=== PATIENT | female | born 1980 | race Caucasian/White ===

== ENCOUNTER 2017-10-01 | Observation (INO) | payer OTHER | END 2017-10-02 11:33 | disposition home or self-care (01) | PROVIDERS: ADMIT Obstetrics & Gynecology | PROC: 0DBP8ZX Excision of Rectum, Via Natural or Artificial Opening Endoscopic, Diagnostic (ICD-10-PCS; principal; 2017-10-01) | PROC: 8E0W8CZ Robotic Assisted Procedure of Trunk Region, Via Natural or Artificial Opening Endoscopic (ICD-10-PCS; principal; 2017-10-01) | PROC: 0UT7FZZ Resection of Bilateral Fallopian Tubes, Via Natural or Artificial Opening With Percutaneous Endoscopic Assistance (ICD-10-PCS; principal; 2017-10-01) | PROC: 0UBC8ZZ Excision of Cervix, Via Natural or Artificial Opening Endoscopic (ICD-10-PCS; principal; 2017-10-01) | PROC: 0UT90ZZ Resection of Uterus, Open Approach (ICD-10-PCS; principal; 2017-10-01) | PROC: 0UTC0ZZ Resection of Cervix, Open Approach (ICD-10-PCS; principal; 2017-10-01) | PROC: 0UT2FZZ Resection of Bilateral Ovaries, Via Natural or Artificial Opening With Percutaneous Endoscopic Assistance (ICD-10-PCS; principal; 2017-10-01) | DX: N81.4 Uterovaginal prolapse, unspecified (principal); N80.1 Endometriosis of ovary; N94.10 Unspecified dyspareunia; I10 Essential (primary) hypertension; J45.998 Other asthma | CPT/HCPCS: 58552; G0378 ==